=== PATIENT | female | born 1950 | race Caucasian/White ===

== ENCOUNTER 2019-06-20 08:48 | Emergency (ER) | payer MEDICARE ==
[2019-06-20 08:57] VITALS: BP 178/91
--- NOTE | 2019-06-20 09:02 | UC ---
Throat Pain/Nasal Mario HPI - HPI Summary HPI Summary: 69 y/o female presents to the urgent care c/o sore throat, nasal congestion w/ clear nasal discharge and itchy nose and eyes for the past week. sore throat is 2/10 w/ clear PND. Pt saw her PCP at the beginning of symptoms and and was Rx Graciela PO and Flonase Nasal spray to alleviate symptoms. Pt is concerned w/ strep since she has a new grandchild at home. Pt denies fever, dizziness, ear pain, cough, wheezing, SOB, chest pain, abdominal pain, N/V/D. - History of Current Complaint Chief Complaint: UCGeneralIllness Stated Complaint: SORE THROAT Time Seen by Provider: 06/20/19 08:56 Hx Obtained From: Patient ?: No - menopausal Onset/Duration: Gradual Onset, Lasting Weeks - 1 week, Still Present Severity: Mild Pain Intensity: 2 Pain Scale Used: 0-10 Numeric Cough: None Associated Signs & Symptoms: Positive: Sinus Discomfort, Nasal Discharge - clear. Negative: Wheezing, Fever, Rash Related History: Seasonal Allergies - Epiglottits Risk Factors Epiglottis Risk Factors: Negative - Allergies/Home Medications Allergies/Adverse Reactions: Allergies Allergy/AdvReac Type Severity Reaction Status Date / Time nitrofurantoin Allergy Unknown Verified 06/20/19 08:58 Reaction Details Sulfa (Sulfonamide Allergy Unknown Verified 06/20/19 08:58 Antibiotics) Reaction Details PMH/Surg Hx/FS Hx/Imm Hx Previously Healthy: Yes Endocrine History: Dyslipidemia Cardiovascular History: Hypertension - Surgical History Surgical History: Yes Surgery Procedure, Year, and Place: THREE C-SECTIONS. TWO D & C'S - Family History Known Family History: Positive: Hypertension - Social History Occupation: Retired Lives: With Family Alcohol Use: None Substance Use Type: None Smoking Status (MU): Never Smoked Tobacco Review of Systems All Other Systems Reviewed And Are Negative: Yes Constitutional: Positive: Negative Skin: Positive: Negative ENT: Positive: Sore Throat, Nasal Discharge - clear, Sinus Congestion, Other - PND clear Respiratory: Positive: Negative Cardiovascular: Positive: Negative Gastrointestinal: Positive: Negative Genitourinary: Positive: Negative Motor: Positive: Negative Neurovascular: Positive: Negative Musculoskeletal: Positive: Negative Neurological: Positive: Negative Psychological: Positive: Negative Is Patient Immunocompromised?: No Physical Exam - Summary Physical Exam Summary: VITAL SIGNS: Reviewed. GENERAL: Patient is a well developed and nourished female who is sitting comfortably in the examining table. Patient is not in any acute respiratory distress. HEAD AND FACE: No signs of trauma. No ecchymosis, hematomas or skull depressions. No sinus tenderness. EYES: PERRLA, EOMI x 2, No injected conjunctiva, no nystagmus. No photophobia. EARS: Hearing grossly intact. Ear canals and tympanic membranes are within normal limits. MOUTH: Positive pharynx with mild erythema, no exudates, No B/L tonsillar enlargement , no exudate. Uvula in midline. edematous nasal mucosa w/ clear nasal discharge, clear PND NECK: Supple, trachea is midline, Positive anterior cervical lymphadenopathy, no JVD, no carotid bruit, no c-spine tenderness, neck with full ROM. No meningeal signs, no Kernig's or brudzinskis signs. CHEST: Symmetric, no tenderness at palpation LUNGS: Clear to auscultation bilaterally. No wheezing or crackles. CVS: Regular rate and rhythm, S1 and S2 present, no murmurs or gallops appreciated. ABDOMEN: Soft, non-tender. No signs of distention. No rebound no guarding, and no masses palpated. Bowel sounds are normal. EXTREMITIES: FROM in all major joints, no edema, no cyanosis or clubbing. NEURO: Alert and oriented x 3. No acute neurological deficits. Pt follows commands. SKIN: Dry and warm Triage Information Reviewed: Yes Vital Signs: Initial Vital Signs Temp 98 F 06/20/19 08:51 Pulse 65 06/20/19 08:51 Resp 16 06/20/19 08:51 BP 178/91 06/20/19 08:51 Pulse Ox 100 06/20/19 08:51 Throat Pain/Nasal Course/Dx - Course Course Of Treatment: 69 y/o female presents to the urgent care c/o sore throat, nasal congestion w/ clear nasal discharge and itchy nose and eyes for the past week. sore throat is 2/10 w/ clear PND. Pt saw her PCP at the beginning of symptoms and and was Rx Graciela PO and Flonase Nasal spray to alleviate symptoms. Pt is concerned w/ strep since she has a new grandchild at home. Pt denies fever, dizziness, ear pain, cough, wheezing, SOB, chest pain, abdominal pain, N/V/D. Hx obtained. Pt w/ a pharyngitis on examination, Rapid strep ordered, result: negative. Viral pharyngitis. Pt Rx ibuprofen PO to alleviates symptoms of pain and swelling. Pt also w/ possible allergic rhinitis and advised to continue taking Graciela and flonase nasal spray. Advised on hand washing to avoid spreading. Pt advised to rest, eat well and avoid strenuous exercise. If symptoms do not improve or worsen advised to return to the urgent care or f/u with her PCP for further evaluation and treatment.Pt's BP is elevated today, Pt has not taken her BP mediation yet today and is asymptomatic. advised to be compliant w/ her medications and to decrease salt in diet, monitor BP and f/u with PCP for further management. D/c instructions explained. Pt understood and agreed w/ plan of care. - Differential Dx/Diagnosis Differential Diagnosis/HQI/PQRI: Laryngitis, Mononucleosis, Pharyngitis, Sinusitis, Tonsillitis Provider Diagnosis: Acute pharyngitis, Uncontrolled hypertension Discharge ED - Sign-Out/Discharge Documenting (check all that apply): Patient Departure All imaging exams completed and their final reports reviewed: No Studies - Discharge Plan Condition: Stable Disposition: HOME Patient Education Materials: Pharyngitis (ED) Referrals: Chayo Irizarry MD [Primary Care Provider] - Additional Instructions: 1-Please take ibuprofen PO q6-8hrs prn as instructed after meals to alleviate pain and swelling. Increase fluid intake, eat well, rest and avoid strenuous exercise 2-Please continue using saline drops , Flonase Nasal spray and Graciela tp alleviate your allergic rhinitis 3-If symptoms do not improve or worsen please return to the urgent care or f/u with your PCP for further evaluation and treatment. 4-Your BP is elevated today. Please take your BP medications and decrease salt in your diet, monitor BP and if it continues to be elevated please f/u with your PCP for further management. If you develop chest pain, dizziness, visual disturbances, SOB, or severe DAVIDSON please go immediately to the ER for further management - Billing Disposition and Condition Condition: STABLE Disposition: Home
== END 2019-06-20 09:24 | disposition home or self-care (01) ==
LOC: UCEAST 08:48
DX: J02.9 Acute pharyngitis, unspecified (principal); I10 Essential (primary) hypertension; Z88.1 Allergy status to other antibiotic agents; Z88.2 Allergy status to sulfonamides
CPT/HCPCS: 87651; 99211; G0463